=== PATIENT | female | born 1925 | race Caucasian/White ===

== ENCOUNTER 2016-10-27 16:56 | Inpatient (IN) | payer OTHER ==
[~2016-10-27] VITALS: Ht 160 cm; Wt 65.0 kg
[~2016-10-27 16:56] MED LIST: ASPI-496 PO; ATOR10TA PO; ATOR10TA9 PO; CETI10CA PO; FAMO20TA7 PO; FENO145T32 PO; FURO20TA3 PO; HYDR-3138 PO; ISOS30TA8 PO; LACT1CAP20 PO; LACT1CAP35 PO; LEVO100T PO; LEVO112T2 PO; LEVO750T26 PO; LISI2.5T PO; MAGN400T7 PO; METH500T7 PO; METO25TA91 PO; METO50TA82 PO; MULT-717 PO; NITR0.4T SL; OMEP20CA9 PO; PRED10TA PO; PRED50TA PO; TOLT4CAP PO
[2016-10-27] MEDS ORDERED: ONDANSETRON ODT 4 MG PO ONE (17:30)
[2016-10-27] MEDS ORDERED: SODIUM CHLORIDE FLUSH 10ML SYR IVF ONE (17:30)
[2016-10-27 17:55] LABS: ASPARTATE AMINO TRANSFERASE 28 U/L (15-37); BLOOD UREA NITROGEN 28 mg/dL (7-18)
[2016-10-27] MEDS ORDERED: MORPHINE SULFATE 4 MG/ML, 1ML IVPush ONE (19:00)
[2016-10-27] MEDS ORDERED: MORPHINE SULFATE 4 MG/ML, 1ML ONE ×2 (19:03→20:39)
[2016-10-27] MEDS ORDERED: ONDANSETRON 2MG/ML, 2ML ONE ×2 (19:03→20:39)
[2016-10-27] MEDS ORDERED: ONDANSETRON 2MG/ML, 2ML IVPush ONE (19:30)
[2016-10-27] MEDS ORDERED: OMNIPAQUE 350 MG/ML, 100ML BOTTLE ONE (19:52)
[2016-10-27] MEDS ORDERED: CIPROFLOXACIN/PMX 400MG/200ML 200 ML IV ONE (21:00)
[2016-10-27] MEDS ORDERED: METRONIDAZOLE PMX 500MG/100ML 100 ML IV ONE (21:00)
[2016-10-27] MEDS ORDERED: CIPROFLOXACIN/PMX 400MG/200ML 200 ML ONE (21:16)
[2016-10-27] MEDS ORDERED: DIPHENHYDRAMINE 50 MG/ML, 1ML ONE (21:31)
[2016-10-27] MEDS ORDERED: METRONIDAZOLE PMX 500MG/100ML 100 ML ONE (21:32)
[2016-10-27] MEDS ORDERED: HYDROcodone/APAP 5/325 TABLET PO PRN (22:00)
[2016-10-27] MEDS ORDERED: POLYETHYLENE GLYCOL 17 GM PACKET PO PRN (22:00)
[2016-10-27] MEDS ORDERED: ENOXAPARIN 40 MG/0.4 ML SQ SCH (22:00)
[2016-10-27] MEDS ORDERED: DOCUSATE 100 MG CAPSULE PO PRN (22:00)
[2016-10-27] MEDS ORDERED: ACETAMINOPHEN 325 MG TABLET PO PRN (22:00)
[2016-10-27] MEDS ORDERED: METOPROLOL SUCCINATE 25 MG TAB.ER.24H PO SCH (22:00)
[2016-10-27] MEDS ORDERED: BISACODYL 10 MG SUPP PR PRN (22:00)
[2016-10-27] MEDS ORDERED: ONDANSETRON 2MG/ML, 2ML IVPush PRN (22:00)
[2016-10-27] MEDS ORDERED: DIPHENHYDRAMINE 50 MG/ML, 1ML IVPush PRN (22:00)
[2016-10-27] MEDS: LACTOBACILLUS CHEW TABLET PO SCH (22:54)
[2016-10-27] MEDS: ATORVASTATIN 10 MG TABLET PO SCH (22:54)
[2016-10-27] MEDS: FENOFIBRATE 145 MG TABLET PO SCH (22:54)
[2016-10-27] MEDS: NS + 20MEQ KCL 1,000 ML IV SCH (22:55)
[2016-10-27] MEDS: CEFTRIAXONE PMX 1GM/50ML 50 ML IV SCH (23:44)
[2016-10-28 02:52] VITALS: BP 89/52
[2016-10-28] MEDS: LEVOTHYROXINE 100 MCG TABLET PO SCH (05:55)
[2016-10-28] MEDS: METRONIDAZOLE PMX 500MG/100ML 100 ML IV SCH ×3 (05:55→22:55)
[2016-10-28 06:03] LABS: BLOOD UREA NITROGEN 26 mg/dL (7-18)
[2016-10-28 06:08] LABS: DIFF TOTAL CELLS COUNTED 100 CELL DIFF
[2016-10-28 06:17] LABS: VERIFY COUNTS? YES
[2016-10-28 06:18] LABS: POLYCHROMASIA 1+
[2016-10-28 06:21] LABS: LARGE PLATELETS 1+
[2016-10-28 07:10] LABS: IS PT STATUS REG ER OR PRE ER? NO
[2016-10-28 07:36] VITALS: BP 88/53
[2016-10-28] MEDS: ASPIRIN 81 MG TABLET CHEW PO SCH (07:50)
[2016-10-28] MEDS ORDERED: SODIUM CHLORIDE 0.9%, 500ML IVBOLUS ONE (08:00)
[2016-10-28 08:34] VITALS: BP 82/45
[2016-10-28] MEDS: LACTOBACILLUS CHEW TABLET PO SCH ×3 (09:00→20:10)
[2016-10-28] MEDS: LISINOPRIL 5 MG TABLET PO SCH (09:00)
[2016-10-28] MEDS ORDERED: ISOSORBIDE MONONITRATE ER 30 MG TABLET PO SCH (09:00)
[2016-10-28] MEDS: ISOSORBIDE MONONITRATE ER 30 MG TABLET PO SCH (09:00)
[2016-10-28] MEDS ORDERED: LISINOPRIL 5 MG TABLET PO SCH (09:00)
[2016-10-28] MEDS: TOLTERODINE LA 4MG CAP.ER.24H PO SCH (09:00)
[2016-10-28] MEDS: MAGNESIUM OXIDE 400 MG TABLET PO SCH (09:00)
[2016-10-28 10:38] LABS: IS PT STATUS REG ER OR PRE ER? NO
[2016-10-28 12:45] VITALS: BP 98/60
[2016-10-28] MEDS: NS + 20MEQ KCL 1,000 ML IV SCH (12:51)
[2016-10-28 17:10] LABS: IS PT STATUS REG ER OR PRE ER? NO
[2016-10-28 20:00] VITALS: BP 111/68
[2016-10-28] MEDS: ATORVASTATIN 10 MG TABLET PO SCH (20:11)
[2016-10-28] MEDS: FENOFIBRATE 145 MG TABLET PO SCH (20:11)
[2016-10-28] MEDS: METOPROLOL SUCCINATE 25 MG TAB.ER.24H PO SCH (20:11)
[2016-10-28] MEDS ORDERED: ENOXAPARIN 30 MG/0.3 ML SQ SCH (22:00)
[2016-10-28] MEDS: CEFTRIAXONE PMX 1GM/50ML 50 ML IV SCH (22:10)
[2016-10-28] MEDS: ENOXAPARIN 30 MG/0.3 ML SQ SCH (22:11)
[2016-10-29 02:49] VITALS: BP 100/68
[2016-10-29 05:15] LABS: BLOOD UREA NITROGEN 17 mg/dL (7-18)
[2016-10-29] MEDS: LEVOTHYROXINE 100 MCG TABLET PO SCH (06:03)
[2016-10-29] MEDS: ASPIRIN 81 MG TABLET CHEW PO SCH (06:03)
[2016-10-29] MEDS: METRONIDAZOLE PMX 500MG/100ML 100 ML IV SCH ×3 (06:03→22:30)
[2016-10-29] MEDS: LISINOPRIL 5 MG TABLET PO SCH (07:21)
[2016-10-29] MEDS: TOLTERODINE LA 4MG CAP.ER.24H PO SCH (07:21)
[2016-10-29] MEDS: MAGNESIUM OXIDE 400 MG TABLET PO SCH (07:21)
[2016-10-29] MEDS: LACTOBACILLUS CHEW TABLET PO SCH ×3 (07:21→20:22)
[2016-10-29] MEDS: ISOSORBIDE MONONITRATE ER 30 MG TABLET PO SCH (07:24)
[2016-10-29 08:19] VITALS: BP 131/85
[2016-10-29 14:11] VITALS: BP 105/57
[2016-10-29 18:47] VITALS: BP 125/63
[2016-10-29] MEDS: FENOFIBRATE 145 MG TABLET PO SCH (20:22)
[2016-10-29] MEDS: ATORVASTATIN 10 MG TABLET PO SCH (20:22)
[2016-10-29] MEDS: METOPROLOL SUCCINATE 25 MG TAB.ER.24H PO SCH (20:23)
[2016-10-29] MEDS: CEFTRIAXONE PMX 1GM/50ML 50 ML IV SCH (22:14)
[2016-10-29] MEDS: ENOXAPARIN 30 MG/0.3 ML SQ SCH (22:14)
[2016-10-30 01:48] VITALS: BP 133/73
[2016-10-30] MEDS: METRONIDAZOLE PMX 500MG/100ML 100 ML IV SCH (06:10)
[2016-10-30] MEDS: LEVOTHYROXINE 100 MCG TABLET PO SCH (06:10)
[2016-10-30] MEDS: ASPIRIN 81 MG TABLET CHEW PO SCH (06:10)
[2016-10-30] MEDS: TOLTERODINE LA 4MG CAP.ER.24H PO SCH (07:21)
[2016-10-30] MEDS: MAGNESIUM OXIDE 400 MG TABLET PO SCH (07:22)
[2016-10-30] MEDS: LACTOBACILLUS CHEW TABLET PO SCH (07:22)
[2016-10-30] MEDS: LISINOPRIL 5 MG TABLET PO SCH (07:22)
[2016-10-30] MEDS: ISOSORBIDE MONONITRATE ER 30 MG TABLET PO SCH (07:22)
[2016-10-30 07:27] VITALS: BP 138/76
[2016-10-30] MEDS ORDERED: CEFD300C37 PO (10:14)
[2016-10-30] MEDS ORDERED: METR500T PO (10:14)
[2016-10-30] MEDS ORDERED: metroNIDAZOLE 500 MG TABLET PO SCH (16:00)
[2016-10-30] MEDS ORDERED: CEFDINIR 300 MG CAPSULE PO SCH (21:00)
== END 2016-10-30 17:43 | disposition home or self-care (01) | DRG 682 ==
LOC: ED 21:15 → EDIP 21:33 → 3NE 22:06 → 5SO 10-28 08:19
DX: N17.9 Acute kidney failure, unspecified (principal); E43 Unspecified severe protein-calorie malnutrition; K57.92 Diverticulitis of intestine, part unspecified, without perforation or abscess without bleeding; I50.32 Chronic diastolic (congestive) heart failure; I13.0 Hypertensive heart and chronic kidney disease with heart failure and stage 1 through stage 4 chronic kidney disease, or unspecified chronic kidney disease; J98.11 Atelectasis; E03.9 Hypothyroidism, unspecified; E11.22 Type 2 diabetes mellitus with diabetic chronic kidney disease; E11.65 Type 2 diabetes mellitus with hyperglycemia; E78.00 Pure hypercholesterolemia, unspecified; E78.5 Hyperlipidemia, unspecified; E86.0 Dehydration; I25.119 Atherosclerotic heart disease of native coronary artery with unspecified angina pectoris; I25.2 Old myocardial infarction; I71.4 Abdominal aortic aneurysm, without rupture; J44.9 Chronic obstructive pulmonary disease, unspecified; M47.816 Spondylosis without myelopathy or radiculopathy, lumbar region; N18.3 Chronic kidney disease, stage 3 (moderate); N28.1 Cyst of kidney, acquired; N32.81 Overactive bladder; Z66 Do not resuscitate; Z79.82 Long term (current) use of aspirin; Z79.899 Other long term (current) drug therapy; Z80.6 Family history of leukemia; Z82.3 Family history of stroke; Z87.891 Personal history of nicotine dependence; Z95.5 Presence of coronary angioplasty implant and graft; Z96.651 Presence of right artificial knee joint; Z68.25 Body mass index [BMI] 25.0-25.9, adult; Z88.8 Allergy status to other drugs, medicaments and biological substances
CPT/HCPCS: 36415; 71010; 74022; 74177; 80048; 80053; 81001; 83690; 84484; 85025; 87086; 93005; 96374; 96375; J0696; J0744; J1650; J2405; J3480; Q9967; J1200; J7040

== ENCOUNTER → 2017-02-01 | Outpatient (CLI) | payer OTHER ==
[~2017-02-01] MED LIST changes: +CEFD300C37 PO; +GADOBUTROL 7.5 MMOL/7.5 ML VIAL ONE; -HYDR-3138 PO; +HYDR-3237 PO; +METR500T PO
== END | disposition home or self-care (01) ==
LOC: CFH 09:24
PROVIDERS: ATTEND Registered Nurse
DX: G31.9 Degenerative disease of nervous system, unspecified (principal)
CPT/HCPCS: 70553; A9585

== ENCOUNTER → 2017-02-02 | Outpatient (CLI) | payer OTHER ==
[~2017-02-02] MED LIST changes: -GADOBUTROL 7.5 MMOL/7.5 ML VIAL ONE; +OMEP-110 PO
== END | disposition home or self-care (01) ==
LOC: CARD 08:23
PROVIDERS: ATTEND Registered Nurse
DX: R41.3 Other amnesia (principal)
CPT/HCPCS: 95819

== ENCOUNTER 2017-02-11 12:03 | Emergency (ER) | payer OTHER ==
[~2017-02-11] VITALS: Ht 162.6 cm; Wt 65.0 kg
[~2017-02-11 12:03] MED LIST changes: -OMEP-110 PO
[2017-02-11] MEDS ORDERED: SODIUM CHLORIDE FLUSH 10ML SYR IVF ONE (12:30)
[2017-02-11] MEDS ORDERED: ASPIRIN 81 MG TABLET CHEW PO ONE (12:30)
[2017-02-11] MEDS ORDERED: ASPIRIN 81 MG TABLET CHEW ONE (12:41)
[2017-02-11] MEDS ORDERED: OMEP-110 PO (12:55)
[2017-02-11] MEDS ORDERED: METO50TA82 PO (12:55)
[2017-02-11 12:57] LABS: HEMATOCRIT 43.7 % (34.6-47.8); HEMOGLOBIN 14.5 g/dL (11.7-16.4); WHITE BLOOD COUNT 4.5 x10^3/uL (3.4-10)
[2017-02-11 13:06] LABS: BLOOD UREA NITROGEN 32 mg/dL (7-18)
[2017-02-11 13:13] LABS: IS PT STATUS REG ER OR PRE ER? YES
[2017-02-11 13:41] VITALS: BP 121/56
== END 2017-02-11 13:42 | disposition home or self-care (01) ==
LOC: ED 12:35
DX: R53.1 Weakness (principal); R06.00 Dyspnea, unspecified; J44.9 Chronic obstructive pulmonary disease, unspecified; I11.0 Hypertensive heart disease with heart failure; I50.9 Heart failure, unspecified; E78.00 Pure hypercholesterolemia, unspecified; I25.2 Old myocardial infarction; Z90.710 Acquired absence of both cervix and uterus; Z90.49 Acquired absence of other specified parts of digestive tract; Z87.891 Personal history of nicotine dependence
CPT/HCPCS: 36415; 71010; 80048; 82040; 83880; 84484; 85025; 85610; 93005; 99285